=== PATIENT | male | born 1970 | race Caucasian/White ===

== ENCOUNTER → 2024-07-21 | Outpatient (CLI) | payer BC, SELFPAY ==
[2024-07-21 19:40] LABS: Hepatitis B Surface Antibody Non-Reactive
[2024-07-24 12:08] LABS: HEPATITIS B SURFACE AG Negative (Negative); Hep C Antibodies Non Reactive (Non Reactive); Hepatitis A AB, Total Negative (Negative); Hepatitis A IgM Antibody Negative (Negative); Hepatitis B Core AB IgM Negative (Negative); QNTFERON TB Mitogen Value > 10.00 IU/mL (.); QNTFERON TB Nil Value 0 IU/mL (.); QNTFERON TB1+ Ag Value 0.04 IU/mL (.); QNTFERON TB2+ Ag Value 0.05 IU/mL (.); QNTIFERON TB Positive Criteria Negative (Negative)
== END | disposition home or self-care (01) ==
LOC: MTLAB 14:17
PROVIDERS: PCP Family Medicine; Referring Provider Dermatology Pediatric Dermatology; Visit Provider Dermatology Pediatric Dermatology
DX: L40.0 Psoriasis vulgaris (principal); Z79.899 Other long term (current) drug therapy
CPT/HCPCS: 36415; 80074; 86480; 86706; 86708

== ENCOUNTER 2024-10-11 00:55 | Emergency (ER) | payer OTHER, BC, SELFPAY ==
[2024-10-11 00:57] VITALS: BP 139/90; PULSE 69; RESP 18; TEMP 36.4; O2SAT 99; BMI 28.9
--- NOTE | 2024-10-11 01:25 | RAD_ITS ---
PROCEDURE: SHOULDER 4 VIEWS TECHNIQUE: Four views of the left shoulder COMPARISON: None. FINDINGS: LEFT SHOULDER: Anatomic alignment of the glenohumeral joint. No acute fractures or dislocations are identified. Os acromiale. Mild spurring involving the osseous glenoid, humeral head and AC joint. Remaining visualized osseous structures appear intact. Visualized left lung is clear RAD/Shoulder min 2 Views IMPRESSION: No acute fractures or dislocations are identified. Mild degenerative changes, as above Reading Location: [facility]
--- NOTE | 2024-10-11 01:54 | EX.ED.UPPERE ---
HPI History of Present Illness Chief Complaint: Upper Extremity Injury Informant: patient Narrative Narrative: Patient is a 54-year-old male with history of arthritis. He is right-hand dominant. He reports that this evening he was at work when he was pulling on boxes [address] this happened his left arm yanked backwards and that time he felt a sudden pop and burning sensation in the left upper outer arm. He states since that time he has had difficulty moving the arm secondary to severe pain associated with the motion. He cannot perform his job based on the symptoms and therefore was sent in for evaluation [facility] Medical History Arthritis Hemorrhoid Right ankle sprain Shoulder pain Home Medications ?Medication ?Instructions ?Recorded ?Last Taken ?Type mesalamine 400 mg capsule (with 400 mg PO ONCE 10/19/22 Unknown History delayed release tablets inside) Allergy/AdvReac Type Severity Reaction Status Date / Time Sulfa (Sulfonamide Allergy Other Verified 10/11/24 00:56 Antibiotics) Family History no significant family his Surgical History no surgical history Social History Smoking Status: Never smoker ROS ROS ED Constitutional Constitutional ED: Denies chills or fever(s) ENT ENT ED: Denies sore throat Cardiovascular Cardiovascular: Denies chest pain Respiratory/Chest Respiratory/Chest: Denies cough or dyspnea Gastrointestinal Gastrointestinal: Denies abdominal pain, diarrhea, nausea or vomiting Genitourinary Genitourinary ED: Denies dysuria Musculoskeletal Musculoskeletal: Reports other Details: Positive left shoulder/upper arm pain Integumentary Denies rash Neurologic Neurologic: Reports weakness; Denies headache(s) or paresthesias Hematologic/Lymphatic Hematologic/Lymphatic: Denies easy bleeding or easy bruising EXAM Physical Exam Const Vital Signs: 10/11/24 00:57 Temperature 97.6 F L Temperature Source Oral Pulse Rate 69 Respiratory Rate 18 Blood Pressure 139/90 H Blood Pressure Mean 106 Pulse Ox 99 Oxygen Delivery Method Room Air Positive well nourished and well developed General Appearance ED: well developed HEENT HEENT Narrative: Normocephalic atraumatic Eyes PERRL and EOMs intact bilaterally Neck full ROM and supple Resp normal respiratory effort and clear to auscultation bilaterally Cardio regular rate and regular rhythm Extremity Extremity Narrative: Left upper extremity is neurovascularly intact; AIN/PIN are intact and normal. Active range of motion is severely limited secondary to pain. There is no obvious bony deformity or joint effusion. Negative sulcus sign. Along the proximal lateral portion of the left humerus there is mild soft tissue swelling and ecchymosis and there is softness at this site which is asymmetric to the right and pain on palpation especially as it extends towards the coracoid process. This is concerning for partial or complete lateral bicep tendon rupture. Compartments are soft and compressible going against compartment syndrome Remainder of the exam is normal Neuro oriented x3 and CN's II-XII intact bilaterally Sensorium / Orientation: alert Psych mental status grossly normal Skin no rashes or lesions noted Skin Narrative: Soft tissue swelling with faint ecchymosis along the left upper arm as documented above MDM MDM MDM Narrative Medical decision making narrative: Patient arrived to the ER mildly hypertensive but otherwise with stable vitals. He reported sudden onset of pain and decreased motion after a sudden pulling mechanism. Differential diagnosis is for fracture versus dislocation versus rotator cuff injury versus biceps tendon injury. By exam he has swelling ecchymosis and pain along the lateral aspect of the proximal humerus that tracks towards the coracoid process which is most consistent or concerning for a biceps tendon rupture. In order to rule out fracture joint effusion or dislocation x-ray was obtained. This showed simply arthritic changes. At this time he is neurovascularly intact and there is no need for emergent orthopedic consultation as he does not have compartment syndrome or neurovascular compromise. Therefore he will be instructed to follow-up with orthopedics for further evaluation and potential MRI to assess the severity of his injury but is otherwise safe for discharge History & Record Review Discussion w/independent historian: Patient Radiography Diagnostic Testing: Left shoulder x-ray as interpreted by the emergency medicine physician reveals osteoarthritic changes without acute fracture or dislocation or joint effusion Discharge Plan Triage Chief Complaint: Upper Extremity Injury ED Provider: Dipesh Tang Dx/Rx/DC Orders Clinical Impression: Biceps tendon tear, Osteoarthritis Instructions: Biceps Tendonitis Proximal Prescriptions: No Action mesalamine 400 mg capsule (with del rel tablets) 400 mg PO ONCE Primary Care Provider: Elia Gordon Referrals: Elia Gordon MD [Primary Care Provider] - Davi Garcia DO [Med Staff - Active Staff] - 3-5 Days (Biceps tendon tear) Activity Restrictions/Additional Instructions: Please follow-up with orthopedics/Dr. Garcia as your history and exam indicates a lateral biceps tendon tear. You may need an MRI to confirm how severe the tear is and to discuss potential need for surgical fixation. Continue with Tylenol and/or Motrin for pain control. If you have any further concerns or worsening symptoms please return to the ER for repeat evaluation Print Language: Amharic Disposition Disposition: Home, Self Care Discharge Date/Time: 10/11/24 02:08
== END 2024-10-11 02:08 | disposition home or self-care (01) ==
PROVIDERS: Emergency Provider Emergency Medicine; PCP Family Medicine; Visit Provider Emergency Medicine
DX: S46.212A Strain of muscle, fascia and tendon of other parts of biceps, left arm, initial encounter (principal); M19.90 Unspecified osteoarthritis, unspecified site; X58.XXXA Exposure to other specified factors, initial encounter
CPT/HCPCS: 73030; 99282

== ENCOUNTER → 2025-01-24 | Outpatient (CLI) | payer OTHER, BC, SELFPAY ==
--- NOTE | 2025-01-24 13:27 | RAD_ITS ---
EXAM: XR Right Shoulder Complete, 2 or More Views CLINICAL INDICATION: SHOULDER INJURY TECHNIQUE: Two or more views of the right shoulder. COMPARISON: No relevant prior studies available. FINDINGS: BONES/JOINTS: Mild degenerative change of the acromioclavicular glenohumeral joints. No acute fracture. No dislocation. SOFT TISSUES: Unremarkable. RAD/Shoulder min 2 Views IMPRESSION: Degenerative changes as above. Reading Location: [facility], [facility]
--- NOTE | 2025-01-24 13:27 | RAD_ITS ---
EXAM: XR Right Humerus, 2 or More Views CLINICAL INDICATION: ARM INJURY TECHNIQUE: Frontal and lateral views of the right humerus. COMPARISON: No relevant prior studies available. FINDINGS: BONES/JOINTS: Unremarkable. No acute fracture. No dislocation. SOFT TISSUES: Unremarkable. RAD/Humerus min 2 Views IMPRESSION: No acute fracture. Reading [facility]
== END | disposition home or self-care (01) ==
LOC: MTRAD 13:27
PROVIDERS: PCP Family Medicine; Referring Provider Physician Assistant; Visit Provider Physician Assistant
DX: S49.91XA Unspecified injury of right shoulder and upper arm, initial encounter (principal)
CPT/HCPCS: 73030; 73060